=== PATIENT | female | born 1975 | race Caucasian/White ===

== ENCOUNTER 2017-07-21 09:58 | Emergency (ER) | payer BC ==
[~2017-07-21] VITALS: Ht 167.6 cm; Wt 96.8 kg
[~2017-07-21 09:58] MED LIST: ADVIL200 MG PO; CENTRUM ADULTS1 TAB PO; CIPROFLOXACN500 MG PO; HALOPERIDOL1 MG PO; LORATADINE10 M1 PO; LORTAB 7.5-3251 TAB PO; MOTRIN800 MG/TAB PO; NASACORT A55 MCG/ACT NB; TRILEPTAL150 M1 PO; ZYRTEC10 MG PO
[2017-07-21] MEDS ORDERED: OXCARBAZEPINE150 MG PO (10:25)
[2017-07-21] MEDS ORDERED: NORCO1 TA2 PO (10:26)
[2017-07-21] MEDS ORDERED: MOTRIN800 MG PO (10:26)
[2017-07-21 11:00] LABS: HEMATOCRIT 44.2 % (37.0-47.0); IMMATURE GRANULOCYTES 0.3 % (0.0-1.0); MEAN CORPUSCULAR HGB 30.5 pG CALC (26.0-32.0); MEAN CORPUSCULAR HGB CONC 33.9 g/L CALC (32.0-36.0); NEUT# 4.71 thou/uL (2.00-7.15); RED BLOOD COUNT 4.91 mill/uL (4.20-5.60); RED CELL DISTRI WIDTH 13.9 % (11.5-15.5)
[2017-07-21 11:10] LABS: ALBUMIN 4.5 g/dL (3.2-5.0); ALKALINE PHOSPHATASE 172 u/l (38-126); ANION GAP 19 (6-22 (CALC)); BILIRUBIN, TOTAL 0.6 mg/dL (0.0-1.4); BUN 11 mg/dL (7-17); BUN/CREATININE RATIO 16 (12-20 (CALC)); CALCIUM 9.3 mg/dL (8.4-10.2); CARBON DIOXIDE 20 mmol/l (22-30); CHLORIDE 106 mmol/l (95-108); CREATININE 0.7 mg/dL (0.5-1.0); GFR > 60 ML/MIN (>=60 (CALC)); GFR FOR AFR.AMER. > 60 ML/MIN (>=60 (CALC)); GLUCOSE 110 mg/dL (65-105); LIPASE 44 u/l (23-300); POTASSIUM 4.1 mmol/l (3.5-5.1); SGOT/AST 43 u/l (14-36); SGPT/ALT 62 u/l (9-52); SODIUM 141 mmol/l (137-146); TOTAL PROTEIN 7.9 g/dL (6.3-8.2)
[2017-07-21 12:04] LABS: URINE BILIRUBIN - DIPSTICK NEGATIVE (NEGATIVE); URINE BLOOD DIPSTICK TRACE-INTACT (NEGATIVE); URINE COLOR YELLOW; URINE GLUCOSE - DIPSTICK NEGATIVE (NEGATIVE); URINE KETONE TRACE mg/dL (NEGATIVE); URINE LEUK ESTERASE NEGATIVE (NEGATIVE); URINE NITRITE - DIPSTICK NEGATIVE (Negative); URINE PROTEIN - DIPSTICK TRACE mg/dL (NEG-TRACE); URINE SPECIFIC GRAVITY 1.025; URINE UROBILINOGEN - DIPSTICK 0.2 E.U./dL (0.2)
[2017-07-21 12:09] LABS: URINE CLARITY SL CLOUDY
[2017-07-21 12:42] LABS: C. DIFFICILE TOXIN A&B NEGATIVE (NEGATIVE)
[2017-07-21 13:29] VITALS: BP 137/91
== END 2017-07-21 13:43 | disposition home or self-care (01) | DRG 392 ==
LOC: ED 09:58
PROVIDERS: Family Medicine
DX: A09 Infectious gastroenteritis and colitis, unspecified (principal); R10.13 Epigastric pain
CPT/HCPCS: Q9967

== ENCOUNTER 2019-04-07 22:15 | Emergency (ER) | payer MEDICARE ==
[~2019-04-07] VITALS: Ht 167.6 cm; Wt 100.0 kg
[~2019-04-07 22:15] MED LIST changes: +MOTRIN800 MG PO; +NORCO1 TA2 PO; +OXCARBAZEPINE150 MG PO
[2019-04-07 23:24] VITALS: BP 142/60
== END 2019-04-07 23:30 ==
LOC: ED 22:15
DX: S83.92XA Sprain of unspecified site of left knee, initial encounter (principal); X58.XXXA Exposure to other specified factors, initial encounter; Y35.813A Legal intervention involving manhandling, suspect injured, initial encounter; Y92.009 Unspecified place in unspecified non-institutional (private) residence as the place of occurrence of the external cause

== ENCOUNTER 2022-03-08 14:25 | Emergency (ER) | payer MEDICARE ==
[~2022-03-08] VITALS: Ht 167.6 cm; Wt 63.0 kg
[2022-03-08 15:31] VITALS: BP 147/84
== END 2022-03-08 16:01 | disposition home or self-care (01) ==
LOC: ED 14:25
DX: Z00.8 Encounter for other general examination (principal)

== ENCOUNTER 2023-09-08 13:17 | Emergency (ER) | payer MEDICARE ==
[~2023-09-08] VITALS: Ht 167.6 cm; Wt 60.0 kg
[2023-09-08] MEDS ORDERED: ZYRTEC10 MG PO (16:59)
[2023-09-08] MEDS ORDERED: VIBRAMYCIN100 M2 PO (16:59)
[2023-09-08 17:24] VITALS: BP 113/72
== END 2023-09-08 17:24 | disposition home or self-care (01) ==
LOC: ED 13:17
DX: J32.9 Chronic sinusitis, unspecified (principal); Z20.822 Contact with and (suspected) exposure to COVID-19